=== PATIENT | male | born 1950 | race Caucasian/White ===

== ENCOUNTER → 2016-10-19 | Outpatient (CLI) | payer BC ==
--- NOTE | 2016-10-19 12:08 | PCVCIMAG ---
APPROVED REPORT Indications Amaurosis Fugax Syncope Risk Factors Hypertension: Hyperlipidemia Doppler Spectral Velocity Analysis PSV / EDVPSV / EDV ECA (R) 121 / 20 cm/sECA (L) 124 / 11 cm/s dICA (R) 70 / 24 cm/sdICA (L) 66 / 22 cm/s Lona (R) 39 / 14 cm/smICA (L) 56 / 19 cm/s pICA (R) 46 / 13 cm/spICA (L) 50 / 13 cm/s Bulb (R) 61 / 13 cm/sBulb (L) 40 / 13 cm/s dCCA (R) 74 / 14 cm/sdCCA (L) 72 / 13 cm/s mCCA (R) 92 / 16 cm/smCCA (L) 119 / 18 cm/s Vert (R) 45 / 13 cm/sVert (L) 47 / 11 cm/s ICA/CCA 0.92 ICA/CCA 0.8 Real Time B-Mode Imaging Vert. (R)AntegradeVert. (L)Antegrade Findings The right carotid bulb has mild plaque. The right proximal internal carotid artery shows no significant stenosis. The right common carotid artery shows no significant stenosis. The right external carotid artery shows no significant stenosis. The left carotid bulb has mild plaque. The left proximal internal carotid artery shows no significant stenosis. The left common carotid artery shows no significant stenosis. The left external carotid artery shows no significant stenosis. Conclusion 1. Mild plaquing involving both carotid arteries without significant stenosis 2. Antegrade vertebral flow
--- NOTE | 2016-10-19 13:58 | PCVCIMAG ---
APPROVED REPORT Study performed: 10/19/2016 10:53:18 EXAM: Comprehensive 2D, Doppler, and color-flow Echocardiogram Patient Location: Echo lab Status: routine BSA: 2.24 HR: 67 bpmBP: 146/78 mmHg Rhythm: NSR Other Information Study Quality: Adequate Indications Dyspnea Pacemaker Syncope Vision issues 2D Dimensions LVEF(%): 45.68 (>50%) IVSd: 9.65 (7-11mm) LVDd: 50.66 mm PWd: 8.99 (7-11mm) LVDs: 39.08 (25-40mm) Left Atrium: 39.77 (27-40mm) Aortic Root: 34.19 mm LV Single Plane 4CH: 63.42 % LV Single Plane 2CH: 61.86 %Beaulieu's LVEF: 62.64 % Biplane EF: 62.3 % Volumes Left Atrial Volume (Systole) Single Plane 4CH: 70.88 mLSingle Plane 2CH: 72.61 mL LA ESV Index: 32.00 mL/m2 Aortic Valve AoV Peak Bharathi.: 1.80 m/s AO Peak Gr.: 12.94 mmHgLVOT Max P.49 mmHg LVOT Max V: 1.17 m/s Mitral Valve E/A Ratio: 1.5 MV Decel. Time: 192.25 ms MV E Max Bharathi.: 0.86 m/s MV A Bharathi.: 0.57 m/s IVRT: 96.89 ms Pulmonary Valve PV Peak Bharathi.: 1.06 m/sPV Peak Gr.: 4.47 mmHg Pulmonary Vein P Vein S: 0.31 m/sP Vein A: 0.33 m/s P Vein D: 0.42 m/sP Vein A Dur.: 155.7 msec P Vein S/D Ratio: 0.74 Tricuspid Valve TR Peak Bharathi.: 2.30 m/s TR Peak Gr.: 21.13 mmHg Left Ventricle The left ventricle is normal size. There is normal LV segmental wall motion. There is normal left ventricular wall thickness. Left ventricular systolic function is normal. The left ventricular ejection fraction is within the normal range. LVEF is 55-60%. Grade I - abnormal relaxation pattern. Right Ventricle The right ventricle is normal size. The right ventricular systolic function is normal. Pacemaker lead is present in the right ventricle. Atria The left atrium size is normal. The right atrium size is normal. Pacemaker lead is present in the right atrium. Aortic Valve The aortic valve is normal in structure. No aortic regurgitation is present. There is no aortic valvular stenosis. Mitral Valve The mitral valve is normal in structure. Trace mitral regurgitation. No evidence of mitral valve stenosis. Tricuspid Valve The tricuspid valve is normal in structure. Trace tricuspid regurgitation with PAP of 28 mmHg. Pulmonic Valve The pulmonary valve is normal in structure. There is no pulmonic valvular regurgitation. Great Vessels The aortic root is normal in size. IVC is normal in size and collapses with >50% inspiration Pericardium There is no pericardial effusion. <Conclusion> Left ventricular systolic function is normal. The left ventricular ejection fraction is within the normal range. LVEF is 55-60%. Grade I - abnormal relaxation pattern. The right ventricle is normal size. The right atrium size is normal. Pacemaker lead is present in the right atrium. The aortic valve is normal in structure. Trace mitral regurgitation. Trace tricuspid regurgitation with PAP of 28 mmHg. There is no pericardial effusion.
== END | disposition home or self-care (01) ==
LOC: PCVCIMAG 11:05
PROVIDERS: ATTEND Internal Medicine Cardiovascular Disease
DX: I65.23 Occlusion and stenosis of bilateral carotid arteries (principal); I08.1 Rheumatic disorders of both mitral and tricuspid valves; H53.9 Unspecified visual disturbance; E78.5 Hyperlipidemia, unspecified; J44.9 Chronic obstructive pulmonary disease, unspecified; I10 Essential (primary) hypertension; E78.00 Pure hypercholesterolemia, unspecified; H34.212 Partial retinal artery occlusion, left eye; Z95.0 Presence of cardiac pacemaker; Z87.891 Personal history of nicotine dependence; Z79.82 Long term (current) use of aspirin
CPT/HCPCS: 80061; 93005; 93306; 93880; G0463

== ENCOUNTER → 2017-06-14 | Outpatient (CLI) | payer BC ==
[~2017-06-14] MED LIST: REGADENOSON 0.4 MG/5 ML DISP.SYRIN. IV
== END | disposition home or self-care (01) ==
LOC: PCVCIMAG 12:50
DX: I10 Essential (primary) hypertension (principal); R53.83 Other fatigue; R06.00 Dyspnea, unspecified; J44.9 Chronic obstructive pulmonary disease, unspecified; Z95.5 Presence of coronary angioplasty implant and graft; Z87.891 Personal history of nicotine dependence
CPT/HCPCS: 78452; 93017; A9500; J2785

== ENCOUNTER → 2018-10-11 | Outpatient (CLI) | payer MEDICARE, BC | END | disposition home or self-care (01) | LOC: PCVCCLINIC 10:00 | PROVIDERS: ATTEND Internal Medicine Cardiovascular Disease | DX: Z01.818 Encounter for other preprocedural examination (principal); J44.9 Chronic obstructive pulmonary disease, unspecified; R93.1 Abnormal findings on diagnostic imaging of heart and coronary circulation; I10 Essential (primary) hypertension; E78.00 Pure hypercholesterolemia, unspecified; Z86.73 Personal history of transient ischemic attack (TIA), and cerebral infarction without residual deficits | CPT/HCPCS: 36415; 80061; 93280; G0463 ==

== ENCOUNTER → 2018-10-11 | Outpatient (CLI) | payer MEDICARE, BC ==
--- NOTE | 2018-10-11 13:23 | PCVCIMAG ---
APPROVED REPORT Laterality: Bilateral Indications Amaurosis Fugax Doppler Spectral Velocity Analysis PSV / EDVPSV / EDV ECA (R) 117 / 19 cm/sECA (L) 143 / 17 cm/s dICA (R) 63 / 23 cm/sdICA (L) 38 / 12 cm/s Lona (R) 66 / 20 cm/smICA (L) 77 / 23 cm/s pICA (R) 28 / 8 cm/spICA (L) 34 / 9 cm/s Bulb (R) 60 / 14 cm/sBulb (L) 46 / 13 cm/s dCCA (R) 66 / 14 cm/sdCCA (L) 50 / 12 cm/s mCCA (R) 82 / 14 cm/smCCA (L) 59 / 11 cm/s Vert (R) 44 / 15 cm/sVert (L) 48 / 12 cm/s ICA/CCA 1.00ICA/CCA 1.54 Findings The right carotid bulb has mild plaque. The right proximal internal carotid artery shows no significant stenosis. The right common carotid artery shows no significant stenosis. The right external carotid artery shows no significant stenosis. The left carotid bulb has mild plaque. The left proximal internal carotid artery shows no significant stenosis. The left common carotid artery shows no significant stenosis. The left external carotid artery shows no significant stenosis. Conclusion 1. Mild bilateral plaquing without significant stenosis. 2. Antegrade vertebral flow. In comparison with the study dated October 2016, no significant differences were identified
== END | disposition home or self-care (01) ==
LOC: PCVCIMAG 11:03
PROVIDERS: ATTEND Internal Medicine Cardiovascular Disease
DX: Z01.818 Encounter for other preprocedural examination (principal); I65.23 Occlusion and stenosis of bilateral carotid arteries; H53.9 Unspecified visual disturbance; J44.9 Chronic obstructive pulmonary disease, unspecified; R93.1 Abnormal findings on diagnostic imaging of heart and coronary circulation; I44.2 Atrioventricular block, complete; E78.00 Pure hypercholesterolemia, unspecified; Z86.73 Personal history of transient ischemic attack (TIA), and cerebral infarction without residual deficits; Z87.891 Personal history of nicotine dependence; Z79.899 Other long term (current) drug therapy; Z72.89 Other problems related to lifestyle; Z95.0 Presence of cardiac pacemaker
CPT/HCPCS: 93280; 93880; G0463